=== PATIENT | male | born 1990 | race Caucasian/White ===

== ENCOUNTER 2022-06-13 10:32 | Inpatient (IN) | payer SELFPAY ==
[2022-06-13] MEDS ORDERED: SODIUM CHLORIDE 1,000 ML IV STA (11:35)
[2022-06-13] MEDS ORDERED: morphine CARPU-JECT 4 MG/1 ML DISP.SYRIN IVPUSH ONE (11:35)
[2022-06-13] MEDS ORDERED: morphine SULFATE 4 MG/ML VIAL ONE (11:53)
[2022-06-13 12:23] LABS: BASO % 0.3 % (0-2.0); EOS % 1.5 % (0-4.5); HEMATOCRIT 45.7 % (35.4-49); HEMOGLOBIN 15.1 GM/dL (11.7-16.9); LYMPH % 7.3 % (8-40); MCH 28.8 pg (25.7-33.7); MCHC 33.1 g/dl (32.0-35.9); MEAN PLT VOLUME 8.4 fl (7.5-11.1); MONO % 6.2 % (3.8-10.2); NEUT % 84.7 % (42.8-82.8); PLATELET COUNT 294 10^3/uL (134-434); RBC 5.25 M/mm3 (4.00-5.60); RDW 14.6 % (11.9-15.9); WHITE BLOOD COUNT 14.7 K/mm3 (4.0-10.0)
[2022-06-13 12:30] LABS: PROTHROMBIN TIME (PATIENT) 11.5 SEC (9.7-13.0)
[2022-06-13 12:41] LABS: ALBUMIN 4.2 g/dl (3.4-5.0); BLOOD UREA NITROGEN 24.8 mg/dL (7-18); CALCIUM 9.7 mg/dL (8.5-10.1)
[2022-06-13 12:44] LABS: CREATININE 1.1 mg/dL (0.55-1.3)
[2022-06-13 12:46] LABS: BILIRUBIN,TOTAL 0.7 mg/dL (0.2-1)
[2022-06-13 12:58] LABS: TOT PROT 7.2 g/dl (6.4-8.2)
[2022-06-13] MEDS ORDERED: morphine CARPU-JECT 4 MG/1 ML DISP.SYRIN IVPUSH PRN (13:50)
[2022-06-13] MEDS ORDERED: SODIUM CHLORIDE 1,000 ML IV SCH (14:00)
[2022-06-13] MEDS ORDERED: ACETAMINOPHEN INJECTION 100 ML IVPB ONE (14:56)
[2022-06-13] MEDS: ACETAMINOPHEN 1000 MG/100 ML BAG IVPB PRN ×2 (15:10→21:19)
[2022-06-13 18:14] LABS: PH,URINE 6.5 (5.0-8.0); URINE APPEARANCE CLEAR; URINE BILIRUBIN NEGATIVE (NEGATIVE); URINE COLOR YELLOW; URINE GLUCOSE (UA) NEGATIVE (NEGATIVE); URINE KETONE NEGATIVE (NEGATIVE); URINE LEUK ESTERASE NEGATIVE (NEGATIVE); URINE NITRITE NEGATIVE (NEGATIVE); URINE PROTEIN NEGATIVE (NEGATIVE); URINE UROBILINOGEN 0.2 mg/dL (0.2-1.0)
[2022-06-13 23:03] VITALS: BMI 29.8
[2022-06-14] MEDS: ACETAMINOPHEN 1000 MG/100 ML BAG IVPB PRN (07:54)
[2022-06-14 09:50] LABS: BASO % 0.4 % (0-2.0); EOS % 2.1 % (0-4.5); HEMATOCRIT 44.4 % (35.4-49); HEMOGLOBIN 14.7 GM/dL (11.7-16.9); LYMPH % 14.2 % (8-40); MCH 29.2 pg (25.7-33.7); MCHC 33.2 g/dl (32.0-35.9); MEAN PLT VOLUME 8.5 fl (7.5-11.1); MONO % 12.5 % (3.8-10.2); NEUT % 70.8 % (42.8-82.8); PLATELET COUNT 281 10^3/uL (134-434); RBC 5.05 M/mm3 (4.00-5.60); RDW 14.5 % (11.9-15.9); WHITE BLOOD COUNT 7.2 K/mm3 (4.0-10.0)
[2022-06-14 09:57] LABS: INR 1.12 (0.83-1.09); PROTHROMBIN TIME (PATIENT) 12.9 SEC (9.7-13.0)
[2022-06-14 09:59] LABS: ACTIVATED PTT 29.5 SECONDS (25.2-36.5)
[2022-06-14 11:11] LABS: BLOOD UREA NITROGEN 16.7 mg/dL (7-18)
[2022-06-14 11:12] LABS: PHOSPHOROUS 4.5 mg/dL (2.5-4.9)
[2022-06-14 11:14] LABS: BILIRUBIN,TOTAL 0.6 mg/dL (0.2-1); TOT PROT 6.7 g/dl (6.4-8.2)
[2022-06-14 11:17] LABS: CALCIUM 9.1 mg/dL (8.5-10.1)
[2022-06-14 11:18] LABS: ALBUMIN 3.7 g/dl (3.4-5.0); MAGNESIUM 2.1 mg/dL (1.8-2.4)
[2022-06-14] MEDS ORDERED: GENTAMICIN SO4 80 MG/2 ML VIAL ONE (12:00)
[2022-06-14] MEDS ORDERED: BUPIVACAINE LIPOSOME/PF (EXPAREL) 266 MG/20 ML VIAL ONE (12:01)
[2022-06-14] MEDS ORDERED: LIDOCAINE 1%/EPI 1:100000 (20 ML MULTI DOSE VIAL) ONE (12:01)
[2022-06-14] MEDS ORDERED: BUPIVACAINE HCL/PF 0.25% (2.5MG/ML) 10 ML VIAL ONE (12:01)
[2022-06-14] MEDS ORDERED: LIDOCAINE 1%/EPI 1:100000 (20 ML MULTI DOSE VIAL) IJ ONE ×2 (12:27→13:41)
[2022-06-14] MEDS ORDERED: ceFAZolin SODIUM 1 GM VIAL IVPB ONE ×2 (12:27→13:35)
[2022-06-14] MEDS ORDERED: VANCOMYCIN 1 GM in D5W (PRE-DOCKED) 1,000 MG/250 ML IVPB ONE ×2 (12:28→13:35)
[2022-06-14] MEDS ORDERED: GENTAMICIN SO4 80 MG/2 ML VIAL IVPB ONE ×2 (12:28→14:34)
[2022-06-14] MEDS ORDERED: THROMBIN (BOVINE) 5,000 UNIT VIAL TP ONE ×2 (12:28→14:12)
[2022-06-14] MEDS ORDERED: HYDROGEN PEROXIDE 473 ML PO ONE ×2 (12:29→14:34)
[2022-06-14] MEDS ORDERED: MIDAZOLAM HCL 2 MG/2 ML SINGLE DOSE VIAL ONE ×2 (12:38→13:15)
[2022-06-14] MEDS ORDERED: PROPOFOL 20 ML ONE (12:56)
[2022-06-14] MEDS ORDERED: ROCURONIUM BROMIDE 50 MG/5 ML SYRINGE ONE ×2 (12:58→13:42)
[2022-06-14] MEDS ORDERED: LIDOCAINE HCL/PF 2% SDV 5ML VIAL ONE (12:59)
[2022-06-14] MEDS ORDERED: SODIUM CHLORIDE 0.9% P/F 10 ML VIAL IJ ONE ×2 (13:00→13:02)
[2022-06-14] MEDS ORDERED: ceFAZolin SODIUM 1 GM VIAL ONE (13:00)
[2022-06-14] MEDS ORDERED: TRANEXAMIC ACID 1000 MG/10 ML VIAL ONE (13:01)
[2022-06-14] MEDS ORDERED: VANCOMYCIN 1,000 MG VIAL (RESTRICTED TO ID ONLY) ONE (13:02)
[2022-06-14] MEDS ORDERED: DEXAMETHASONE SOD PHOSPHATE 4 MG/1 ML VIAL ONE (13:03)
[2022-06-14] MEDS ORDERED: KETOROLAC TROMETHAMINE 30 MG/1 ML VIAL ONE (13:03)
[2022-06-14] MEDS ORDERED: ONDANSETRON 4 MG/2 ML VIAL ONE (14:10)
[2022-06-14] MEDS ORDERED: NEOSTIGMINE METHYLSULFATE 0.5 MG/ML - 10 ML MDV ONE (14:10)
[2022-06-14] MEDS ORDERED: GLYCOPYRROLATE 0.2 MG/1 ML VIAL ONE ×3 (14:38→14:48)
[2022-06-14] MEDS ORDERED: oxyCODONE HCL 5 MG TABLET PO PRN ×4 (15:28→16:30)
[2022-06-14] MEDS ORDERED: ONDANSETRON 4 MG/2 ML VIAL IVPUSH PRN ×4 (15:28→17:56)
[2022-06-14] MEDS ORDERED: LACTATED RINGERS SOLUTION 1,000 ML IV SCH ×2 (15:30→16:30)
[2022-06-14] MEDS ORDERED: diphenhydrAMINE HCL 25 MG CAPSULE (FP) PO PRN (16:30)
[2022-06-14] MEDS ORDERED: NALOXONE HCL 0.4 MG/ML VIAL IVPUSH PRN (17:56)
[2022-06-14] MEDS ORDERED: morphine SULFATE/PF 1 MG/2 ML (2cc Syringe - QUVA) IT ONE (17:56)
[2022-06-14] MEDS: LACTATED RINGERS SOLUTION 1,000 ML/1,000 ML INFUS.BAG IV SCH ×2 (20:30→21:48)
[2022-06-14] MEDS: CEFAZOLIN 1 GM in DEXTROSE 5%-WATER - 50 ML IVPB SCH (22:15)
[2022-06-14] MEDS: DOCUSATE SODIUM 100 MG CAPSULE (FP) PO SCH (22:15)
[2022-06-14] MEDS: ACETAMINOPHEN 1000 MG/100 ML BAG IVPB SCH (22:53)
[2022-06-14] MEDS ORDERED: KETOROLAC TROMETHAMINE 30 MG/1 ML VIAL IVPUSH PRN (23:00)
[2022-06-15] MEDS: oxyCODONE HCL 5 MG TABLET PO PRN ×6 (00:49→23:09)
[2022-06-15] MEDS: ACETAMINOPHEN 1000 MG/100 ML BAG IVPB SCH ×2 (05:09→10:23)
[2022-06-15] MEDS: CEFAZOLIN 1 GM in DEXTROSE 5%-WATER - 50 ML IVPB SCH ×2 (05:54→12:47)
[2022-06-15] MEDS: DOCUSATE SODIUM 100 MG CAPSULE (FP) PO SCH ×3 (05:55→23:10)
[2022-06-15] MEDS: LACTATED RINGERS SOLUTION 1,000 ML/1,000 ML INFUS.BAG IV SCH (06:03)
[2022-06-15] MEDS: FERROUS SO4 325 MG TABLET (FP) PO SCH (08:04)
[2022-06-15 10:11] LABS: HEMATOCRIT 39.7 % (35.4-49); HEMOGLOBIN 13.6 GM/dL (11.7-16.9); MCH 29.7 pg (25.7-33.7); MCHC 34.3 g/dl (32.0-35.9); MEAN CELL VOLUME 86.7 fl (80-96); MEAN PLT VOLUME 8.1 fl (7.5-11.1); PLATELET COUNT 274 10^3/uL (134-434); RBC 4.58 M/mm3 (4.00-5.60); RDW 14.5 % (11.9-15.9)
[2022-06-15] MEDS: FOLIC ACID 1 MG TABLET (FP) PO SCH (10:24)
[2022-06-15 10:30] LABS: CALCIUM 8.5 mg/dL (8.5-10.1)
[2022-06-15 10:32] LABS: BLOOD UREA NITROGEN 18.8 mg/dL (7-18)
[2022-06-15] MEDS: HEPARIN NA (PORCINE) 5,000 UNITS/ML 1ML VIAL SQ SCH ×2 (12:47→20:24)
[2022-06-15] MEDS: ACETAMINOPHEN 325 MG TABLET (FP) PO SCH (20:26)
[2022-06-16] MEDS: ACETAMINOPHEN 325 MG TABLET (FP) PO SCH ×2 (03:14→09:52)
[2022-06-16] MEDS: oxyCODONE HCL 5 MG TABLET PO PRN ×3 (03:15→12:01)
[2022-06-16] MEDS: HEPARIN NA (PORCINE) 5,000 UNITS/ML 1ML VIAL SQ SCH ×2 (05:57→13:20)
[2022-06-16] MEDS: DOCUSATE SODIUM 100 MG CAPSULE (FP) PO SCH (05:57)
[2022-06-16] MEDS: FERROUS SO4 325 MG TABLET (FP) PO SCH (09:52)
[2022-06-16] MEDS: FOLIC ACID 1 MG TABLET (FP) PO SCH (09:53)
[2022-06-16 10:59] VITALS: BP 124/68; PULSE 64; RESP 18; TEMP 97.9
== END 2022-06-16 15:14 | disposition home or self-care (01) | DRG 310 ==
LOC: JER 10:32 → JERBED 13:21 → J6S 20:27 → J4S 06-14 20:51
PROVIDERS: ADMIT Internal Medicine; ATTEND Internal Medicine
PROC: 4A11X4G Monitoring of Peripheral Nervous Electrical Activity, Intraoperative, External Approach (ICD-10-PCS; 2022-06-14)
PROC: 0ST40ZZ Resection of Lumbosacral Disc, Open Approach (ICD-10-PCS; principal; 2022-06-14 14:00)
DX: M51.37 Other intervertebral disc degeneration, lumbosacral region (principal); D72.829 Elevated white blood cell count, unspecified; E78.5 Hyperlipidemia, unspecified; I10 Essential (primary) hypertension; R73.03 Prediabetes; E66.9 Obesity, unspecified; Z68.29 Body mass index [BMI] 29.0-29.9, adult; R42 Dizziness and giddiness
CPT/HCPCS: 36415; 76000-TC-FY; 80048; 80053; 81003; 82962; 83735; 84100; 85025; 85027; 85610; 85730; 86850; 86900; 86901; 87086; 93005; 93010; 94760; 97116-GP; 97161-GP; 99285-25; C9803-CS; J1644; U0003; U0005

== ENCOUNTER 2023-11-05 13:30 | Emergency (ER) | payer BC, OTHER ==
[2023-11-05 13:43] VITALS: BP 125/69; PULSE 89; RESP 20; TEMP 98.1; BMI 31.4
[2023-11-05] MEDS ORDERED: ACETAMINOPHEN INJECTION 100 ML IVPB ONE (15:54)
[2023-11-05] MEDS: SODIUM CHLORIDE 1,000 ML IV STA (16:30)
[2023-11-05] MEDS: ACETAMINOPHEN 1000 MG/100 ML BAG IVPB ONE (16:31)
[2023-11-05 16:33] LABS: BASO % 0.8 % (0-2.0); EOS % 3.1 % (0-4.5); HEMATOCRIT 45.6 % (35.4-49); HEMOGLOBIN 15.5 GM/dL (11.7-16.9); LYMPH % 29.8 % (8-40); MCH 29.2 pg (25.7-33.7); MEAN CELL VOLUME 85.9 fl (80-96); MEAN PLT VOLUME 8.3 fl (7.5-11.1); MONO % 8.9 % (3.8-10.2); NEUT % 57.4 % (42.8-82.8); PLATELET COUNT 295 10^3/uL (134-434); RBC 5.31 M/mm3 (4.00-5.60); RDW 14.6 % (11.9-15.9); WHITE BLOOD COUNT 7.5 K/mm3 (4.0-10.0)
[2023-11-05 16:39] LABS: INR 1.07 (0.83-1.09); PROTHROMBIN TIME (PATIENT) 12.4 SEC (9.7-13.0)
[2023-11-05 16:42] LABS: ACTIVATED PTT 36.4 SECONDS (25.2-36.5)
[2023-11-05 17:13] LABS: POTASSIUM 4.6 mmol/L (3.5-5.1)
[2023-11-05 17:15] LABS: CALCIUM 9.7 mg/dL (8.5-10.1)
[2023-11-05 17:17] LABS: ALBUMIN 4.2 g/dl (3.4-5.0); BLOOD UREA NITROGEN 15.5 mg/dL (7-18); MAGNESIUM 2.1 mg/dL (1.8-2.4)
[2023-11-05 17:19] LABS: CREATININE 1.2 mg/dL (0.55-1.3)
[2023-11-05 17:21] LABS: BILIRUBIN,TOTAL 0.4 mg/dL (0.2-1); TOT PROT 7.6 g/dl (6.4-8.2)
== END 2023-11-05 17:51 | disposition home or self-care (01) ==
LOC: JER 13:30
PROC: 3E033NZ Introduction of Analgesics, Hypnotics, Sedatives into Peripheral Vein, Percutaneous Approach (ICD-10-PCS; principal; 2023-11-05)
PROC: 3E0337Z Introduction of Electrolytic and Water Balance Substance into Peripheral Vein, Percutaneous Approach (ICD-10-PCS; 2023-11-05)
DX: G44.89 Other headache syndrome (principal); R42 Dizziness and giddiness; R29.810 Facial weakness; R47.81 Slurred speech
CPT/HCPCS: 36415; 70450-TC; 70551-TC; 80053; 83735; 85025; 85610; 85730; 99291; J0131